=== PATIENT | female | born 1935 ===

== ENCOUNTER 2018-11-03 22:59 | Observation (INO) | payer SELFPAY ==
[2018-11-04] MEDS ORDERED: Albuterol-Ipratrop 3 mg / 0.5 (3 ml) UD INH STA ×2 (00:14→01:59)
[2018-11-04] MEDS ORDERED: Albuterol-Ipratrop 3 mg / 0.5 (3 ml) UD ONE ×2 (00:17→02:21)
--- NOTE | 2018-11-04 00:34 | ED PDOC ---
HPI: SOB/CHF/COPD Time Seen by Provider: 11/03/18 23:31 Chief Complaint (Nursing): Shortness Of Breath Chief Complaint (Provider): Shortness Of Breath History Per: Family (granddaughter) History/Exam Limitations: no limitations Onset/Duration Of Symptoms: Days (x 7) Current Symptoms Are (Timing): Still Present Additional Complaint(s): 82 year old female with no significant medical history presents to the ED for evaluation of one week of worsening shortness of breath associated with two days of coughing. History is per granddaughter who reports patient is visiting from [place] since September. Denies fever and vomiting. PMD: none provided Past Medical History Reviewed: Historical Data, Nursing Documentation, Vital Signs Vital Signs: Last Vital Signs Temp 97.7 F 11/03/18 23:10 Pulse 78 11/03/18 23:10 Resp 18 11/03/18 23:20 BP 180/86 H 11/03/18 23:10 Pulse Ox 98 11/03/18 23:20 - Medical History PMH: No Chronic Diseases - Surgical History Surgical History: No Surg Hx - Family History Family History: States: Unknown Family Hx - Social History Current smoker - smoking cessation education provided: No Ex-Smoker (has not smoked in the last 12 months): No Alcohol: None Drugs: Denies - Home Medications Home Medications: Ambulatory Orders Medication Instructions Recorded RX: No Known Home Med 11/04/18 - Allergies Allergies/Adverse Reactions: Allergies Allergy/AdvReac Type Severity Reaction Status Date / Time No Known Allergies Allergy Verified 11/03/18 23:10 Review of Systems ROS Statement: Except As Marked, All Systems Reviewed And Found Negative Constitutional: Negative for: Fever Respiratory: Positive for: Cough, Shortness of Breath Gastrointestinal: Negative for: Vomiting Physical Exam - Reviewed Nursing Documentation Reviewed: Yes Vital Signs Reviewed: Yes - Physical Exam Appears: Positive for: No Acute Distress Head Exam: Positive for: ATRAUMATIC, NORMAL INSPECTION, NORMOCEPHALIC Skin: Positive for: Normal Color, Warm, Dry Eye Exam: Positive for: EOMI, Normal appearance, PERRL ENT: Positive for: Normal ENT Inspection Neck: Positive for: Normal, Painless ROM, Supple Cardiovascular/Chest: Positive for: Regular Rate, Rhythm. Negative for: Murmur Respiratory: Positive for: Wheezing. Negative for: Respiratory Distress Gastrointestinal/Abdominal: Positive for: Normal Exam, Soft. Negative for: Tenderness Extremity: Positive for: Normal ROM (x 4). Negative for: Deformity Neurologic/Psych: Positive for: Alert, Oriented (x 3). Negative for: Motor/Sensory Deficits - Laboratory Results Result Diagrams: 11/04/18 00:25 11/04/18 00:25 - ECG O2 Sat by Pulse Oximetry: 98 Medical Decision Making Medical Decision Makin:57 Impression: shortness of breath, cough rule out flu and pneumonia Initial Plan: --EKG --CMP --CBC --CXR --Duoneb 3 ml INH --Peak flow pre/post --Influenza AB 01:58 Labs reveal no clinically significant findings at this time. Patient is negative for influenza. Second duoneb treatment ordered. 02:46 Patient was initially better after the first treatment. Soon after symptoms worsened with increased wheezing. Given the fact that patient has no PMD, she will be admitted to Dr. Palacio who already accepted. Scribe Attestation: Documented by Naye Mi acting as a scribe for Syed Anthony MD Provider Scribe Attestation: All medical record entries made by the Scribe were at my direction and personally dictated by me. I have reviewed the chart and agree that the record accurately reflects my personal performance of the history, physical exam, medical decision making, and the department course for this patient. I have also personally directed, reviewed, and agree with the discharge instructions and disposition. Disposition - Clinical Impression Clinical Impression: Wheezing - Patient ED Disposition Is Patient to be Admitted: Yes Counseled Patient/Family Regarding: Studies Performed - Disposition Disposition Time: :46 Condition: STABLE - Pt Status Changed To: Hospital Disposition Of: Observation
[2018-11-04 00:40] LABS: BASO # 0.1 K/uL (0.0-0.2); BASO % 1.2 % (0.0-2.0); EOS # 0.5 K/uL (0.0-0.7); EOS % 6.8 % (0.0-4.0); HEMOGLOBIN 11.2 g/dL (12.0-16.0); LYMPH # 1.9 K/uL (1.0-4.3); LYMPH % 24.9 % (20.0-40.0); MEAN CELL VOLUME 90.3 fl (81.0-99.0); MEAN CORPUSCULAR HEMOGLOBIN 29.5 pg (27.0-31.0); MEAN CORPUSCULAR HGB CONC 32.7 g/dL (33.0-37.0); MEAN PLATELET VOLUME 8.5 fl (7.2-11.7); MONO # 0.7 K/uL (0.0-0.8); MONO % 9.8 % (0.0-10.0); NEUT # 4.3 K/uL (1.8-7.0); NEUT % 57.3 % (50.0-75.0); RBC 3.81 Mil/uL (3.80-5.20); RED CELL DISTRIBUTION WIDTH 13.6 % (11.5-14.5); WHITE BLOOD COUNT 7.5 K/uL (4.8-10.8)
[2018-11-04 00:47] LABS: ALBUMIN 3.7 g/dL (3.5-5.0); BLOOD UREA NITROGEN 28 mg/dl (7-17); CALCIUM 8.8 mg/dL (8.4-10.2); GFR NON-AFRICAN AMERICAN > 60
[2018-11-04 00:58] LABS: ALT/SGPT 33 U/L (9-52); AST/SGOT 58 U/L (14-36)
[2018-11-04] MEDS ORDERED: Albuterol-Ipratrop 3 mg / 0.5 (3 ml) UD INH PRN (03:43)
--- NOTE | 2018-11-04 03:49 | CP.PCM.HP ---
<Cezar Cam - Last Filed: 11/04/18 03:55> History of Present Illness - History of Present Illness History of Present Illness: 82 yo F with pmhx of osteoporosis presents to the ED with cough and SOB. Cough began appoximately 20 days prior. Dry, non productive, throughout the day. Shortness of breath: presented for 3 days. reports that she feels chest tightness, "like she cant take a deep breath". Denies recent fevers, chills, night sweats, weight loss, sick contacts, known exposure to TB here or in [facility]. Denies personal history of asthma or hematemesis/hemoptysis. Of note: pt is visiting from [place]; Also, pt had pneumonia treated with (unknown) antibiotics 3 months prior. PMD none Surg hx: Cholecystectomy Soc: Denies: smoking, alcohol, illicit drugs; visiting family; from [facility] Famhx: none Rx: Paracetamol NKDA Present on Admission - Present on Admission Any Indicators Present on Admission: No History of Uncontrolled Diabetes: No Urinary Catheter: No Review of Systems - Cardiovascular Cardiovascular: absent: Chest Pain, Chest Pain at Rest - Respiratory Respiratory: As Per HPI, Cough, Wheezing. absent: Hemoptysis - Gastrointestinal Gastrointestinal: absent: Abdominal Pain, Constipation, Diarrhea, Nausea, Vomiting Past Patient History - Past Social History Smoking Status: Never Smoked Alcohol: None Drugs: Denies Home Situation {Lives}: With Family - MUSCULOSKELETAL/RHEUMATOLOGICAL Hx Osteoporosis: Yes - PSYCHIATRIC Hx Substance Use: No - SURGICAL HISTORY Hx Surgeries: No - ANESTHESIA Hx Anesthesia: No Meds Allergies/Adverse Reactions: Allergies Allergy/AdvReac Type Severity Reaction Status Date / Time No Known Allergies Allergy Verified 11/03/18 23:10 Physical Exam - Constitutional Appears: No Acute Distress - Eye Exam Eye Exam: EOMI - ENT Exam ENT Exam: Mucous Membranes Moist - Respiratory Exam Respiratory Exam: Rales, Rhonchi, Wheezes - Cardiovascular Exam Cardiovascular Exam: REGULAR RHYTHM, +S1, +S2 - GI/Abdominal Exam GI & Abdominal Exam: Normal Bowel Sounds, Soft. absent: Tenderness - Extremities Exam Extremities exam: Negative for: calf tenderness - Neurological Exam Neurological exam: Alert, CN II-XII Intact, Oriented x3 - Psychiatric Exam Psychiatric exam: Normal Affect, Normal Mood Results - Vital Signs Recent Vital Signs: Last Vital Signs Temp 97.7 F 11/03/18 23:10 Pulse 78 11/03/18 23:10 Resp 18 11/03/18 23:20 BP 180/86 H 11/03/18 23:10 Pulse Ox 98 11/04/18 02:57 - Labs Result Diagrams: 11/04/18 00:25 11/04/18 00:25 Labs: Laboratory Results - last 24 hr 11/04/18 11/04/18 11/04/18 00:25 00:25 00:25 WBC 7.5 RBC 3.81 Hgb 11.2 L Hct 34.4 MCV 90.3 MCH 29.5 MCHC 32.7 L RDW 13.6 Plt Count 284 MPV 8.5 Neut % (Auto) 57.3 Lymph % (Auto) 24.9 [place] % (Auto) 9.8 Eos % (Auto) 6.8 H Baso % (Auto) 1.2 Neut # (Auto) 4.3 Lymph # (Auto) 1.9 [place] # (Auto) 0.7 Eos # (Auto) 0.5 Baso # (Auto) 0.1 Sodium 136 Potassium 4.2 Chloride 103 Carbon Dioxide 27 Anion Gap 10 BUN 28 H Creatinine 0.7 Est GFR ( Amer) > 60 Est GFR (Non-Af Amer) > 60 Random Glucose 99 Calcium 8.8 Total Bilirubin 0.5 AST 58 H ALT 33 Alkaline Phosphatase 70 Total Protein 7.5 Albumin 3.7 Globulin 3.8 Albumin/Globulin Ratio 1.0 Influenza Typ A,B (EIA) Negative for flu a/b Assessment & Plan - Assessment and Plan (Free Text) Assessment: 82 yo F with pmhx of osteoporosis admitted for bronchospasm. Plan: Bronochospasm s/p duoneb x2 and solu-medrol 125 mg in ED CXR reviewed Eosinophils 6.8 Influenza negative Duoneb q4 with q2 PRN Solu-medrol 30 mg IVP Q8 Consider consulting Pulm Monitor for O2 desat, SOB Elevated BP 180/86 in ED Vasotec 5mg once Monitor BP DVT prophylaxis Lovenox 40 mg SC qD -(Cr clearance: 64 mL/min) SCDs Case and plan d/w Dr. Hakeem Cam MD PGY-2 <Román Palacio - Last Filed: 11/04/18 05:42> Results - Vital Signs Recent Vital Signs: Last Vital Signs Temp 98.1 F 11/04/18 03:55 Pulse 85 11/04/18 03:55 Resp 18 11/04/18 03:55 BP 149/75 11/04/18 03:55 Pulse Ox 98 11/04/18 04:32 - Labs Result Diagrams: 11/04/18 00:25 11/04/18 00:25 Labs: Laboratory Results - last 24 hr 11/04/18 11/04/18 11/04/18 00:25 00:25 00:25 WBC 7.5 RBC 3.81 Hgb 11.2 L Hct 34.4 MCV 90.3 MCH 29.5 MCHC 32.7 L RDW 13.6 Plt Count 284 MPV 8.5 Neut % (Auto) 57.3 Lymph % (Auto) 24.9 [place] % (Auto) 9.8 Eos % (Auto) 6.8 H Baso % (Auto) 1.2 Neut # (Auto) 4.3 Lymph # (Auto) 1.9 [place] # (Auto) 0.7 Eos # (Auto) 0.5 Baso # (Auto) 0.1 Sodium 136 Potassium 4.2 Chloride 103 Carbon Dioxide 27 Anion Gap 10 BUN 28 H Creatinine 0.7 Est GFR ( Amer) > 60 Est GFR (Non-Af Amer) > 60 Random Glucose 99 Calcium 8.8 Total Bilirubin 0.5 AST 58 H ALT 33 Alkaline Phosphatase 70 Total Protein 7.5 Albumin 3.7 Globulin 3.8 Albumin/Globulin Ratio 1.0 Influenza Typ A,B (EIA) Negative for flu a/b Attending/Attestation - Attestation I have personally seen and examined this patient.: Yes I have fully participated in the care of the patient.: Yes I have reviewed all pertinent clinical information: Yes Notes (Text): 11/04/18 05:24 I saw,examined and discussed this patient with Dr Cam. I agree with the assessment and plan outlined above. This is an 82 years old female dx with no hx of Asthma nor wheezes but has had Pneumonia 3months ago, and has been having a non productive cough for approximately 20 days, now with SOB and wheezes. We will treat this bronchospasm which could be due to Bronchitis with Bronchodilators Albuterol, Ipratropium, and Methylprednisolone Román Palacio.
[2018-11-04] MEDS ORDERED: Albuterol-Ipratrop 3 mg / 0.5 (3 ml) UD INH SCH ×2 (04:00→08:00)
--- NOTE | 2018-11-04 08:21 | RAD ---
Date of service: 11/03/2018 HISTORY: cough COMPARISON: No prior. TECHNIQUE: Chest PA and lateral FINDINGS: LUNGS: No active pulmonary disease. PLEURA: No significant pleural effusion identified. No pneumothorax apparent. CARDIOVASCULAR: There is presence of aortic atherosclerotic calcification on x-ray. Tortuous thoracic aorta. Normal cardiac size. No pulmonary vascular congestion. OSSEOUS STRUCTURES: Generalized osteopenia, scoliosis, exuberant the inferior lumbar spondylosis. Mild anterior compression deformity probably osteoporotic type at thoraco lumbar junction and/or upper lumbar spine. No gross retropulsed ossific fragments seen. VISUALIZED UPPER ABDOMEN: Normal. OTHER FINDINGS: Hernia suggested. IMPRESSION: No consolidative infiltrate. Other findings as above.
[2018-11-04 08:39] VITALS: BP 125/79; PULSE 78; RESP 20; TEMP 97.7; O2SAT 97
[2018-11-04] MEDS ORDERED: MethylPREDNISolone 40 mg Vial IVP SCH (09:00)
[2018-11-04] MEDS ORDERED: Enoxaparin 40 mg Syringe SC SCH (09:00)
--- NOTE | 2018-11-04 10:23 | CARD ---
APPROVED REPORT Date of service: 11/03/2018 EKG Measurement Heart [id number] <Conclusion> Normal sinus rhythm Normal ECG
--- NOTE | 2018-11-04 12:34 | CP.PCM.DIS ---
Provider - Provider Date of Admission: 11/04/18 02:46 Attending physician: Román Palacio Primary care physician: None Consults: none Time Spent in preparation of Discharge (in minutes): 20 Hospital Course - Lab Results Lab Results: Most Recent Lab Values WBC 7.5 K/uL (4.8-10.8) 11/04/18 00:25 RBC 3.81 Mil/uL (3.80-5.20) 11/04/18 00:25 Hgb 11.2 g/dL (12.0-16.0) L 11/04/18 00:25 Hct 34.4 % (34.0-47.0) 11/04/18 00:25 MCV 90.3 fl (81.0-99.0) 11/04/18 00:25 MCH 29.5 pg (27.0-31.0) 11/04/18 00:25 MCHC 32.7 g/dL (33.0-37.0) L 11/04/18 00:25 RDW 13.6 % (11.5-14.5) 11/04/18 00:25 Plt Count 284 K/uL (130-400) 11/04/18 00:25 MPV 8.5 fl (7.2-11.7) 11/04/18 00:25 Neut % (Auto) 57.3 % (50.0-75.0) 11/04/18 00:25 Lymph % (Auto) 24.9 % (20.0-40.0) 11/04/18 00:25 [place] % (Auto) 9.8 % (0.0-10.0) 11/04/18 00:25 Eos % (Auto) 6.8 % (0.0-4.0) H 11/04/18 00:25 Baso % (Auto) 1.2 % (0.0-2.0) 11/04/18 00:25 Neut # (Auto) 4.3 K/uL (1.8-7.0) 11/04/18 00:25 Lymph # (Auto) 1.9 K/uL (1.0-4.3) 11/04/18 00:25 [place] # (Auto) 0.7 K/uL (0.0-0.8) 11/04/18 00:25 Eos # (Auto) 0.5 K/uL (0.0-0.7) 11/04/18 00:25 Baso # (Auto) 0.1 K/uL (0.0-0.2) 11/04/18 00:25 Sodium 136 mmol/l (132-148) 11/04/18 00:25 Potassium 4.2 MMOL/L (3.6-5.0) 11/04/18 00:25 Chloride 103 mmol/L (98-107) 11/04/18 00:25 Carbon Dioxide 27 mmol/L (22-30) 11/04/18 00:25 Anion Gap 10 (10-20) 11/04/18 00:25 BUN 28 mg/dl (7-17) H 11/04/18 00:25 Creatinine 0.7 mg/dl (0.7-1.2) 11/04/18 00:25 Est GFR ( Amer) > 60 11/04/18 00:25 Est GFR (Non-Af Amer) > 60 11/04/18 00:25 Random Glucose 99 mg/dL (65-105) 11/04/18 00:25 Calcium 8.8 mg/dL (8.4-10.2) 11/04/18 00:25 Total Bilirubin 0.5 mg/dl (0.2-1.3) 11/04/18 00:25 AST 58 U/L (14-36) H 11/04/18 00:25 ALT 33 U/L (9-52) 11/04/18 00:25 Alkaline Phosphatase 70 U/L (38-126) 11/04/18 00:25 Total Protein 7.5 G/DL (6.3-8.2) 11/04/18 00:25 Albumin 3.7 g/dL (3.5-5.0) 11/04/18 00:25 Globulin 3.8 gm/dL (2.2-3.9) 11/04/18 00:25 Albumin/Globulin Ratio 1.0 (1.0-2.1) 11/04/18 00:25 Influenza Typ A,B (EIA) Negative for flu a/b (NEGATIVE) 11/04/18 00:25 - Hospital Course Hospital Course: 82 y/o female with PMH osteoporosis , visiting from [place] brought by daughter for some cough and wheezing As per patient she has been having this symptoms on and off for 1 month since she was [place] and her doctor was giving her something for the cough. She denierd fever , chills, sputum production , weight loss In ER patient was found to have some respiratory distress with diffuse wheezing . CXR showed no active disease , she was afebrile with elevated BP , normal WBC and 6 % eosinophil She was treated with Duonebs and solumedrol IV Patient clinically improved , at present hemodynamically stable , saturating 98 % in RA with no wheezing no rales no rhonchi on physical exam Will d/c patient home with family All results and findings were discussed with patient and daughter Will d/c on Medrol Pack, Tessalon pearls and Albuterol PRN Dx Acute viral bronchitis Elevated BP -- controlled at present with no meds.No need fort outpatient treatment . To follow up with [facility] Osteoporosis- chronic Discharge Exam - Head Exam Head Exam: ATRAUMATIC, NORMAL INSPECTION, NORMOCEPHALIC - Eye Exam Eye Exam: EOMI, Normal appearance, PERRL Pupil Exam: NORMAL ACCOMODATION - ENT Exam ENT Exam: Normal Exam - Neck Exam Neck exam: Full Rom, Normal Inspection - Respiratory Exam Respiratory Exam: Clear to PA & Lateral, NORMAL BREATHING PATTERN. absent: Rales, Rhonchi, Wheezes, Respiratory Distress - Cardiovascular Exam Cardiovascular Exam: REGULAR RHYTHM, RRR, +S1, +S2. absent: JVD - GI/Abdominal Exam GI & Abdominal Exam: Normal Bowel Sounds, Soft. absent: Distended, Guarding, Rebound, Tenderness - Rectal Exam Rectal Exam: Deferred - Extremities Exam Extremities exam: normal capillary refill, normal inspection, pedal pulses present - Back Exam Back exam: NORMAL INSPECTION - Neurological Exam Neurological exam: Alert, CN II-XII Intact, Oriented x3 - Psychiatric Exam Psychiatric exam: Normal Affect, Normal Mood - Skin Skin Exam: Dry, Normal Color, Warm Discharge Plan - Discharge Medications Prescriptions: Albuterol Sulfate [Ventolin Hfa] 1 puff IH Q4 PRN #1 PRN Reason: Shortness Of Breath Benzonatate [Tessalon Perles] 100 mg PO Q8 #30 sgl Methylprednisolone [Medrol Dose Pack (21 tabs)] 4 mg PO DAILY #21 mg - Follow Up Plan Condition: STABLE Disposition: HOME/ ROUTINE Patient education suggested?: Yes Instructions: Shortness of Breath (Dyspnea) (DC), Reactive Airways Disease (DC) Additional Instructions: hacer mesfin con hoff doctor primario dentro de 1 semana Referrals: [facility] [place] [Outside]
== END 2018-11-04 13:08 | disposition home or self-care (01) ==
LOC: H.ER 22:59 → H.ERHOLD 11-04 02:46 → H.MEDSURG1 11-04 04:02
PROVIDERS: ADMIT Internal Medicine; ATTEND Internal Medicine
DX: J20.8 Acute bronchitis due to other specified organisms (principal); R03.0 Elevated blood-pressure reading, without diagnosis of hypertension; M81.0 Age-related osteoporosis without current pathological fracture
CPT/HCPCS: 71046; 80053; 85025; 87804; 93005; 96372; 96374; 96376; 99285; G0378; J1650; J2920; J2930